=== PATIENT | female | born 1985 | race Two or more races ===

== ENCOUNTER → 2020-01-30 08:02 | Outpatient (BNVA) | payer MEDICAID, SELFPAY | PROVIDERS: Visit Provider Advanced Practice Midwife | DX: Z76.89 Persons encountering health services in other specified circumstances (principal) ==

== ENCOUNTER 2020-03-23 15:26 | Outpatient (REF) | payer MEDICAID, SELFPAY | END 2020-03-23 15:27 | disposition home or self-care (01) | LOC: HO.LAB 15:26 | PROVIDERS: Visit Provider Internal Medicine | DX: Z20.822 Contact with and (suspected) exposure to COVID-19 (principal) | CPT/HCPCS: 36415; C9803; U0003; U0005 ==

== ENCOUNTER → 2020-04-30 11:48 | Outpatient (BNVA) | payer MEDICAID, SELFPAY | PROVIDERS: Visit Provider Advanced Practice Midwife | DX: Z30.41 Encounter for surveillance of contraceptive pills (principal) | CPT/HCPCS: 99212 ==

== ENCOUNTER 2021-09-09 10:54 | Outpatient (REF) | payer MEDICAID, SELFPAY ==
[2021-09-11 14:37] LABS: HPV mRNA E6/E7 rflx Not Detected (Not Detected)
== END 2021-09-09 10:55 | disposition home or self-care (01) ==
LOC: HO.LAB 10:54
PROVIDERS: Visit Provider Advanced Practice Midwife
DX: Z01.419 Encounter for gynecological examination (general) (routine) without abnormal findings (principal); Z11.51 Encounter for screening for human papillomavirus (HPV)
CPT/HCPCS: 87624; 88142

== ENCOUNTER 2023-02-16 10:56 | Outpatient (AMB) | payer OTHER, SELFPAY ==
--- NOTE | 2023-02-16 10:57 | A.OFFVIS_ITS ---
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 Coating Machine Feeder Required: No Information Interpreted: clinical only Sandstone Splitter: Sandstone Splitter Present Allergies azithromycin [AZITHROMYCIN] Allergy (Intermediate, Verified 02/16/23 10:57) RASH cefadroxil [CEFADROXIL] Allergy (Intermediate, Verified 02/16/23 10:57) RASH cefaclor Allergy (Unknown, Verified 02/16/23 10:57) rash Sulfa (Sulfonamide Antibiotics) Allergy (Unknown, Verified 02/16/23 10:57) RASH,SWELLING, swelling,rash feathers Adverse Reaction (Unknown, Uncoded 02/16/23 10:57) Unknown Medication List - Last Reconciled 02/16/23 by Giselle Blanca CNM desog-e.estradiol/e.estradiol 0.15-0.02 mgx21 /0.01 mg x 5 1 tab PO DAILY 84 days Is last menstrual period known: Yes Last menstrual period: 02/09/23 Do you need a note to return to daycare/school/sports/work: No HPI 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 She has not having any abnormal problems at all she gets her regular periods sometimes they are little shorter and tool and die manager and a little bit more brown rather than regular blood but she has been on the pills for quite a while. She has no other health concerns whatsoever she did have an abnormal Pap many many years ago but after that they have all been normal. [facility] Medical History Genital HSV Asthma Surgical History Hx of section Family History Maternal Grandmother HTN (hypertension) Maternal Grandfather Testicle cancer Paternal Grandmother Diabetes mellitus Paternal Grandfather Sepsis Social History Alcohol intake: never Gender identity: Female Female Reproductive History Menstrual Age of Menarche: 13 Duration of menses: 6-7 days Date of last menstrual period: 02/09/23 control method: pills Total pregnancies: 3 Full term: 3 Date of last pap smear: 09/10/21 (negative & 02/16/17,negative) History of abnormal pap smear: Yes (ascus and lsil 2006, ? 2009?) Physical Exam Vital Signs: Last Vital Signs BP 118/70 02/16/23 11:09 Const General: healthy appearing, comfortable, no acute distress, well developed and alert Nutritional Appearance: average body habitus Orientation/consciousness: patient oriented x3 Limitations: no limitations HEENT Head: Yes normocephalic Neck Neck: Yes normal visual inspection Chest Chest palpation & inspection: normal inspection of the chest Breast/axilla inspection: normal inspection of the breasts and normal inspection of the axillae Breast/axilla palpation: normal palpation of the breasts and normal palpation of the axillae Resp Effort & Inspection: normal respiratory effort GI Inspection: Yes normal to inspection, No Abdominal wall edema and No distended Palpation (GI): Soft to palpation and nontender General: Yes bladder normal to palpation External Female Exam: normal external appearance and normal appearance of the urethra Speculum Exam - Vagina: normal appearance of the vagina, normal palpation and normal vaginal discharge Speculum Exam - Cervix: normal appearance of the cervix, normal palpation and nontender Bimanual exam- vagina & uterus: normal bimanual exam, normal palpation, uterine size normal, bladder normal to palpation, consistency normal, normal palpation, uterine mobility normal, uterine shape normal, No Cervical tenderness present, non-tender and no cervical motion tenderness Bimanual Exam- Adnexa, other: normal adnexae, no masses, normal and No adnexal tenderness Neuro General: patient oriented x3 Assessment & Plan Assessment & Plan (1) Cervical cancer screening: Comment: hx of lsil and ascus 2006, all since negative;09/09/2021 Pap is negative with negative HPV Code(s): Z12.4 - Encounter for screening for malignant neoplasm of cervix (2) Surveillance for control, oral contraceptives: Code(s): Z30.41 - Encounter for surveillance of contraceptive pills (3) Well woman exam with routine gynecological exam: Code(s): Z01.419 - Encounter for gynecological examination (general) (routine) without abnormal findings Plan -----Discussed in this visit the following: healthy balanced diet, regular and consistent exercise, getting recommended health screens, doing the best she can for her particular health concerns, kegel exercises, pap smear screening and followup recommendations, mammography screening and SBE, normal changes in cycles in her life stage--- .----I reviewed available options for Control Methods and their associated side effect profiles. In particular, we discussed the method most of interest to her. She is happy on these control pills I had sent a refill for her last week so she is good for the next year. Every now and then she and her boyfriend contemplating having another baby they are talking about it but unsure discussed where she would go if she did decide to have another baby she would consider the [facility] in [place] or possibly [facility]. She had all normal vaginal births, largest 9 lb 7 oz, with the exception of her last her last, was a failed induction for postdates so she ended up with the repeat for that child. 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 We will see her in 1 year she has no concerns with the pills. She has noticed that her periods sometimes are getting a little bit tool and die manager and the bleeding is a little bit more brown. Coding Level of Care Code Est Pt Prev Care 18-39y(57878) Diagnoses Cervical cancer screening Z12.4 Surveillance for control, oral contraceptives Z30.41 Well woman exam with routine gynecological exam Z01.419
[2023-02-16 11:09] VITALS: BP 118/70; BMI 24.6
== END 2023-02-16 11:46 | disposition home or self-care (01) ==
LOC: HO.HWSM 10:56
PROVIDERS: Visit Provider Advanced Practice Midwife
DX: Z12.4 Encounter for screening for malignant neoplasm of cervix (principal); Z30.41 Encounter for surveillance of contraceptive pills; Z01.419 Encounter for gynecological examination (general) (routine) without abnormal findings
CPT/HCPCS: 99395

== ENCOUNTER → 2023-02-16 10:56 | Outpatient (BNVA) | payer OTHER, SELFPAY | PROVIDERS: Visit Provider Advanced Practice Midwife | DX: Z01.419 Encounter for gynecological examination (general) (routine) without abnormal findings (principal); Z12.4 Encounter for screening for malignant neoplasm of cervix; Z30.41 Encounter for surveillance of contraceptive pills | CPT/HCPCS: 99395 ==

== ENCOUNTER 2023-12-01 12:17 | Outpatient (REF) | payer OTHER, SELFPAY | END 2023-12-01 12:18 | disposition home or self-care (01) | LOC: HO.SH 12:17 | PROVIDERS: Visit Provider Family Medicine | DX: Z01.118 Encounter for examination of ears and hearing with other abnormal findings (principal); H93.293 Other abnormal auditory perceptions, bilateral | CPT/HCPCS: 92552; 92556; 92567 ==

== ENCOUNTER → 2024-03-14 10:38 | Outpatient (AMB) | payer OTHER, SELFPAY ==
--- OUTSIDE RECORDS SUMMARY | 2024-03-14 10:41 | XMS_ITS | Clinical Summary ---
Author Organization [facility] Address [address] [place] [address] Care Team Providers Care Spin Instructor Name Role Phone Unavailable Primary Care Provider Unavailabl e Source Comments PLEASE NOTE, if this patient is a minor, it may be UNLAWFUL to discuss sensitive information that is contained in these records (such as FAMILY PLANNING, MENTAL HEALTH or SUBSTANCE ABUSE) with the minor patient's parent or other person without the patient's specific authorization.[facility] Social History Tobacco Use Types Packs/Day Years Used Date Smoking Tobacco: Never Assessed Social Connections Answer Date Recorded Connectedness 0 10/26/2023 Financial Resource Strain Answer Date R ecorded Financial Resource Strain 0 2019 Stress Answer Date Recorded Stress 0 05/03/2019 Physical Activity Answer Date Recorded Physical Activity 0 05/03/2019 Food Insecurity Answer Date Recorded Food 0 11/02/2023 Transportation Needs Answer Date Record ed Transportation 0 05/03/2019 Housing Stability Answer Date Recorded Housing 0 05/03/2019 Safety and Environment Answer Date Wayne rded Safety 0 05/03/2019 Utilities Answer Date Recorded Utilities 0 05/03/2019 Employment Answer Date Recorded Stress 0 10/26/2023 Comments Unknown Sex and Gender Information Value Date Recorded Sex Assigned at Not on file Legal Sex Female 10:06 AM PST Gender Identity Not on file Sexual Orientation Not on file Plan of Treatment Health Maintenance Due Date Last Done Comments Diabetes Screening 1985 HPV Screening 1985 Hepatitis C Screening 1985 Pap + HPV 1985 Tobacco Screening 1985 HIV Screening 2000 Relationship Safety Screening/Counseling 2000 Annual Preventive Care Visit 05/09/2003 Hypertension Screening (#1) 05/09/2003 Imm-DTaP/Tdap/Td (1 - Tdap) 2004 Imm-Hepatitis B (1 of 3 - 19+ 3-dose series) Cervical Cancer Screening 2006 Pap Smear 2006 [id number] (2023- season) 2023 Imm-Influenza (#1) 2023 Alcohol and Drug Screen 02/07/2024 Depression Annual Screen 02/07/2024 Cervical Ablation/Cold-Knife Conization Discontinued Cervical Cryotherapy Discontinued Colposcopy Discontinued Endometrial Biopsy Discontinued Excision/Leep Discontinued HPV Genotyping Discontinued Vaginal Pap Discontinued Vulvoscopy Discontinued Insurance [place] [facility]
--- NOTE | 2024-03-14 10:44 | A.OFFVIS_ITS ---
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 Floorleader Required: No Floorleader Services: Floorleader Present Information Interpreted: clinical only Pinion And Wheel Truer: Pinion And Wheel Truer Present Allergies azithromycin [AZITHROMYCIN] Allergy (Intermediate, Verified 03/14/24 10:46) RASH cefadroxil [CEFADROXIL] Allergy (Intermediate, Verified 03/14/24 10:46) RASH cefaclor Allergy (Unknown, Verified 03/14/24 10:46) rash Sulfa (Sulfonamide Antibiotics) Allergy (Unknown, Verified 03/14/24 10:46) RASH,SWELLING, swelling,rash feathers Adverse Reaction (Unknown, Uncoded 03/14/24 10:46) Unknown Medication List - Last Reconciled 03/14/24 by Giselle Blanca CNM desog-e.estradiol/e.estradiol 0.15-0.02 mgx21 /0.01 mg x 5 1 tab PO DAILY 84 days Is last menstrual period known: Yes Last menstrual period: 03/11/24 HPI HPI 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 She has no concerns about STIs. She is on control pills she has noticed that her periods keep getting sulfur chloride operator and sulfur chloride operator suspicious since the of her 6-year-old sometimes they are just a little brown spotting but they are regular. Also for maybe the last year she has noticed a little hair thinning she washes her hair and she is concerned about that she is up-to-date with her primary care provider and has to go get her lab work at some point and I recommend she check to make sure thyroid level is being checked. She had a mammogram sometime this past year secondary to her PCC feeling something, but everything was negative. She in shape her 3 children ages 18 11 in 6 are into fitness and interested in their [place] and [place] [facility] Medical History Genital HSV Asthma Surgical History Hx of section Family History Maternal Grandmother HTN (hypertension) Maternal Grandfather Testicle cancer Paternal Grandmother Diabetes mellitus Paternal Grandfather Sepsis Social History Alcohol intake: never Gender identity: Female Female Reproductive History Menstrual Age of Menarche: 13 Duration of menses: 3-5 days Date of last menstrual period: 03/11/24 control method: pills Total pregnancies: 3 Full term: 3 Date of last pap smear: 09/09/21 (negative,HPV-) History of abnormal pap smear: Yes (long time ago) Physical Exam Vital Signs: Last Vital Signs BP 112/68 03/14/24 10:45 BMI result Body Mass Index 23.2 Const General: healthy appearing, comfortable, no acute distress, well developed and alert Nutritional Appearance: average body habitus Orientation/consciousness: patient oriented x3 Limitations: no limitations HEENT Head: Yes normocephalic Neck Neck: Yes normal visual inspection Chest Chest palpation & inspection: normal inspection of the chest Breast/axilla inspection: normal inspection of the breasts and normal inspection of the axillae Breast/axilla palpation: normal palpation of the breasts and normal palpation of the axillae Resp Effort & Inspection: normal respiratory effort GI Inspection: Yes normal to inspection, No Abdominal wall edema and No distended Palpation (GI): Soft to palpation and nontender Other: Completely normal exam vagina moist cervix pink smooth healthy long close thick mobile uterus small anteverted mobile nontender easily palpable good tone with Kegel. General: Yes bladder normal to palpation External Female Exam: normal external appearance and normal appearance of the urethra Speculum Exam - Vagina: normal appearance of the vagina, normal palpation and normal vaginal discharge Speculum Exam - Cervix: normal appearance of the cervix, normal palpation and no ntender Bimanual exam- vagina & uterus: normal bimanual exam, normal palpation, uterine size normal, bladder normal to palpation, consistency normal, normal palpation, uterine mobility normal, uterine shape normal, No Cervical tenderness present, non-tender and no cervical motion tenderness Bimanual Exam- Adnexa, other: normal adnexae, no masses, normal and No adnexal tenderness Neuro General: patient oriented x3 Results Reviewed Results Reviewed: al: Justo Teixeira Age/Sex: 36/F Attending: Giselle Blanca CNM : 1985 Submitted by: Giselle Blanca CNM Copies to: MR #: [id number] Status: DEP REF Collected: 09/09/21 Location: .LAB Received: 09/10/21 Interpretation Satisfactory for evaluation. Negative for intraepithelial lesion or malignancy. HPV mRNA E6/E7: NOT DETECTED This assay detects E6/E7 viral messenger RNA (mRNA) from 14 high-risk HPV types (16, 18, 31, 33, 35, 39, 45, 51, 52, 56, 58, 59, 66, 68) HPV testing performed by [facility], [place], [place]. See reference laboratory pion of the EMR for entire report. Clinical Information LMP: Unknown date Previous PAP test: 02/16/17, WNL Material Received ThinPrep-Cervical Electronically Signed By: CORY Hoffmann (ASCP) 09/17/21 1234 The Pap Test is a screening procedure with the inherent possibility of both false negative and false positive results. Results should be interpreted in the context of historic and current clinical findings. Reliability of the Pap Test is enhanced by performing the test on a regular repetitive basis. Patient: Justo Teixeira Age/Sex: 36/F MR#: [id number] Page 1 of 1 Assessment & Plan Assessment & Plan (1) Cervical cancer screening: Comment: hx of lsil and ascus 2006, all since negative;09/09/2021 Pap is negative with negative HPV Code(s): Z12.4 - Encounter for screening for malignant neoplasm of cervix Category: Medical (2) Surveillance for control, oral contraceptives: Code(s): Z30.41 - Encounter for surveillance of contraceptive pills Category: Medical (3) Well woman exam with routine gynecological exam: Code(s): Z01.419 - Encounter for gynecological examination (general) (routine) without abnormal findings Category: Medical (4) control counseling: Code(s): Z30.09 - Encounter for other general counseling and advice on contraception Category: Medical Plan -----Discussed in this visit the following: healthy balanced diet, regular and consistent exercise, getting recommended health screens, doing the best she can for her particular health concerns, kegel exercises, pap smear screening and followup recommendations, mammography screening and SBE, normal changes in cycles in her life stage--- . She wondered if the lightening periods had to do with mahogany menopausal changes shared the likely to her long-term OCPs currently she is happy control pills and does not to change she for control she is not having issues whatsoever. Discussed her concern about the if it were sudden change sometimes to stress or a recent change but she has not had recent shifts what changes. Some within she still has very thick head of hair no bald spots in his new other pattern to hair thinning. I did suggest she may want to double check the thyroid level is 1 of the labs that she is going getting checked with her lab work from her PCC but usually ends up the normal. Discussed she sometimes does notice slightly decreased interest sex and discussed that this is a normal side effect of control pills and any hormonal method of control as well. She does not need any other lab work done. I am refilling her pills for year. She already had a mammogram through her primary or a suspicious finding but now she will getting her regular mammograms it starting at age 40 presumably will be ordered by her primary but it is too soon to order them now anyway. RTC 1 yr. 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 Medications: Refilled desog-e.estradiol/e.estradiol 0.15-0.02 mgx21 /0.01 mg x 5 1 tab PO DAILY 84 days 84 tabs 4RF Coding Level of Care Code Est Pt Prev Care 18-39y(10322) Diagnoses Cervical cancer screening Z12.4 Surveillance for control, oral contraceptives Z30.41 Well woman exam with routine gynecological exam Z01.419 control counseling Z30.09
== END | disposition home or self-care (01) ==
PROVIDERS: Visit Provider Advanced Practice Midwife
CPT/HCPCS: 99395; 99459

== ENCOUNTER → 2024-03-14 10:38 | Outpatient (BNVA) | payer OTHER, SELFPAY | PROVIDERS: Visit Provider Advanced Practice Midwife | DX: Z01.419 Encounter for gynecological examination (general) (routine) without abnormal findings (principal); Z30.41 Encounter for surveillance of contraceptive pills; Z79.3 Long term (current) use of hormonal contraceptives | CPT/HCPCS: 99395; 99459 ==